=== PATIENT | female | born 1940 | race Caucasian/White ===

== ENCOUNTER 2018-01-18 08:41 | Emergency (ER) | payer MEDICARE, BC ==
[~2018-01-18] VITALS: Ht 175.3 cm; Wt 75.5 kg
[~2018-01-18 08:41] MED LIST: ADVIL200 MG; ALEVE 220MG220 MG PO; ASPIRIN 32325 MG/TAB PO; CALCIUM 6001 TA1 PO; CALCIUM PO; CELEBREX 200MG200 MG PO; CENTRUM SILVER1 TA1 PO; ELITE MAGNESIUM1 TAB PO; FERROUS SU325 MG/TAB PO; FISH OIL; FISH OIL CONC1000 MG PO; FOLIC ACID 40400 MCG PO; FOSAMAX PO; FOSAMAX70 MG PO; LEVOTHYROXINE PO; LUTEIN PO; LUTEIN20 M1 PO; LYRICA; MAGNESIUM250 M1 PO; NORCO 325 MG-51 TAB PO; NORCO 325 MG-7.1 TAB PO; OMEGA 31000 MG PO; OMEGA-3 FISH1200 MG PO; OSCAL 500MG/VI500 MG PO; SYNTHROID0.125 MG/T PO; TRAMADOL; ULTRAM; ULTRAM 50MG TAB50 MG PO; ULTRAM50 MG PO; VIT PO; VITAMIN C PUR1000 MG PO; VITAMIN C500 MG PO; VITAMIN D31000 I1 PO; lutein
[2018-01-18 08:45] VITALS: BP 145/65; TEMP 97
[2018-01-18 09:41] VITALS: PULSE 60
== END 2018-01-18 09:42 | disposition home or self-care (01) ==
LOC: COL.ER 08:41
DX: J11.1 Influenza due to unidentified influenza virus with other respiratory manifestations (principal); E03.9 Hypothyroidism, unspecified; Z90.49 Acquired absence of other specified parts of digestive tract; Z90.89 Acquired absence of other organs; Z87.891 Personal history of nicotine dependence; Z98.890 Other specified postprocedural states

== ENCOUNTER → 2018-04-15 | Outpatient (CLI) | payer MEDICARE, BC | LOC: MC.RAD 13:27 | DX: Z12.31 Encounter for screening mammogram for malignant neoplasm of breast (principal) ==

== ENCOUNTER → 2019-07-06 | Outpatient (CLI) | payer MEDICARE, BC | LOC: COL.RAD 13:02 | DX: M79.621 Pain in right upper arm (principal); R22.31 Localized swelling, mass and lump, right upper limb ==

== ENCOUNTER 2020-06-17 14:53 | Emergency (ER) | payer MEDICARE, BC ==
[~2020-06-17] VITALS: Ht 170.2 cm; Wt 73.6 kg
[2020-06-17 15:08] VITALS: BP 166/75; PULSE 72; TEMP 98
[2020-06-17 15:25] LABS: COLLECTION METHOD CLEAN CATCH
[2020-06-17 15:36] LABS: PH 6 (5-8); SQUAMOUS EPITHELIAL 0-2 /hpf; URINE APPEARANCE Clear; URINE BACTERIA Rare /hpf; URINE BILIRUBIN Negative (NEGATIVE); URINE BLOOD 1+ (NEGATIVE); URINE COLOR Yellow; URINE GLUCOSE Negative (NEGATIVE); URINE KETONE Negative (NEGATIVE); URINE LEUKOCYTE ESTERASE 1+ (NEGATIVE); URINE NITRATE Negative (NEGATIVE); URINE PROTEIN(semi-quant) Negative (NEGATIVE); URINE UROBILINOGEN Negative (NEGATIVE)
== END 2020-06-17 16:29 | disposition left against medical advice (07) ==
LOC: COL.ER 14:53
PROVIDERS: Family Medicine
DX: R42 Dizziness and giddiness (principal)

== ENCOUNTER → 2022-05-28 | Outpatient (CLI) | payer MEDICARE, BC ==
[2022-05-28 17:21] LABS: HEMATOCRIT 42.6 % (37.0-47.0); HEMOGLOBIN 14.1 g/dl (12.5-16.0); MEAN CELL VOLUME 90 fl (80.0-100.0); MEAN CORPUSCULAR HEMOGLOBIN 30 pg (27-31); MEAN CORPUSCULAR HGB CONC 33 g/dl (33.0-37.0); MEAN PLATELET VOLUME 11.3 fl (7.4-10.4); PLATELET COUNT 144 K/mm3 (130-400); RED BLOOD COUNT 4.71 M/mm3 (4.10-5.30); REDCELL DISTRIBUTION WIDTH-CV 13.3 % (11.5-14.5)
[2022-05-28 17:47] LABS: ERYTHROCYTE SEDIMENTATION RATE 7 mm/hr (0-30)
== END ==
LOC: COL.LAB 16:54
PROVIDERS: Nurse Practitioner
DX: M25.562 Pain in left knee (principal)

== ENCOUNTER 2022-05-30 14:46 | Inpatient (IN) | payer MEDICARE, BC ==
[~2022-05-30] VITALS: Ht 170.2 cm; Wt 75.0 kg
[2022-05-30 15:20] LABS: BASO % 0.2 % (0.0-2.0); EOS % 0.1 % (0.0-4.0); GRAN # 7.6 K/mm3 (1.4-6.5); GRAN % 82.6 % (42.2-75.2); HEMATOCRIT 40.4 % (37.0-47.0); HEMOGLOBIN 13.4 g/dl (12.5-16.0); LYMPH # 0.6 K/mm3 (1.2-3.4); LYMPH % 6.8 % (20.0-51.0); MEAN CELL VOLUME 91 fl (80.0-100.0); MEAN CORPUSCULAR HEMOGLOBIN 30 pg (27-31); MEAN CORPUSCULAR HGB CONC 33 g/dl (33.0-37.0); MEAN PLATELET VOLUME 10.9 fl (7.4-10.4); MONO # 0.9 K/mm3 (0.1-0.6); PLATELET COUNT 164 K/mm3 (130-400); RED BLOOD COUNT 4.45 M/mm3 (4.10-5.30); REDCELL DISTRIBUTION WIDTH-CV 13.6 % (11.5-14.5)
[2022-05-30 15:42] LABS: BILIRUBIN,TOTAL 1.7 mg/dL (0.2-1.2); CALCIUM 9.1 mg/dL (8.4-10.2); CREATININE, serum 0.82 mg/dL (0.57-1.11); POTASSIUM 3.8 mmol/L (3.5-4.5); TOTAL PROTEIN 7.3 gm/dL (6.2-8.1)
[2022-05-30 15:51] LABS: COLLECTION METHOD CLEAN CATCH
[2022-05-30 15:57] LABS: PH 6 (5-8); SQUAMOUS EPITHELIAL 0-2 /hpf (0-10); URINE APPEARANCE Clear (CLEAR/HAZY); URINE BACTERIA None Seen /hpf (NONE SEEN); URINE BLOOD 1+ (NEGATIVE); URINE COLOR Yellow (YELLOW); URINE GLUCOSE Negative (NEGATIVE); URINE KETONE Negative (NEGATIVE); URINE NITRATE Negative (NEGATIVE); URINE PROTEIN(semi-quant) 2+ (NEGATIVE); URINE UROBILINOGEN Negative (NEGATIVE)
[2022-05-30 17:17] VITALS: BP 149/64; PULSE 101; TEMP 100.5
--- NOTE | 2022-05-30 17:23 | NUR ---
PT ADMITTED TO UNIT. ADMISSION INTAKE AND ASSESSMENT COMPLETED. MED REC UPDATE. PT TREMORING AND STATES SHE FEELS COLD. RUNNING A TEMP AT THIS TIME. WILL CONTINUE TO MONITOR.
[2022-05-30 19:50] LABS: SYNOVIAL FLUID APPEARANCE TURBID; SYNOVIAL FLUID COLOR AMBER
[2022-05-30 19:58] LABS: SYNOVIAL FLUID RBC 31000 /mm3 (0-0)
[2022-05-30 20:02] VITALS: BP 126/59; PULSE 65; TEMP 99.1
[2022-05-30 20:12] LABS: SYNOVIAL FLUID WBC 84380 /mm3 (200-600)
--- NOTE | 2022-05-30 20:57 | NUR ---
Vancomycin Initial Dosing Pharmacy Note Ordering provider: Kiran Amado MD Indication/duration: Joint infection (knee) x 7 days Relevant comorbidities: N/A LABS: WBC= 9.2, SCr = 0.82 Recommendation: Will draw troughs and follow levels. Loading dose: 1.5 grams Maintenance dose: 750 mg every 12 hours Trough goal: 15-20 ug/mL
--- NOTE | 2022-05-30 22:57 | NUR ---
Dr. Jacobs in to aspirate knee around 1930. Results back and called to PAUL Briscoe, and started on ABX. Given PRN Ultram for discomfort to left knee. Aware that plan is to do I&D tomorrow. Will be NPO after midnight. Voices no questions, needs, or concerns at this time. In bed with call light within reach.
[2022-05-31] VITALS (13 sets, daily range): BP systolic 98–156; BP diastolic 43–103; PULSE 58–131; TEMP 97.9–98.8
--- NOTE | 2022-05-31 05:57 | NUR ---
Patient denies pain and discomfort. Recieved IV ABX per orders. Positive blood cultures called to PAUL Briscoe. No new orders. Voices no questions, needs, or concerns at this time. Has been NPO since midnight.
[2022-05-31 06:43] LABS: MEAN CELL VOLUME 93 fl (80.0-100.0); MEAN CORPUSCULAR HGB CONC 32 g/dl (33.0-37.0); MEAN PLATELET VOLUME 11.2 fl (7.4-10.4); PLATELET COUNT 134 K/mm3 (130-400); RED BLOOD COUNT 3.82 M/mm3 (4.10-5.30); REDCELL DISTRIBUTION WIDTH-CV 13.8 % (11.5-14.5)
[2022-05-31 07:01] LABS: ALBUMIN 2.3 gm/dL (3.4-4.8); C-REACTIVE PROTEIN 24.28 mg/dL (0.00-0.50); CREATININE, serum 0.87 mg/dL (0.57-1.11); MAGNESIUM 1.9 mg/dL (1.6-2.6); PHOSPHOROUS 2.5 mg/dL (2.3-4.7); POTASSIUM 3.7 mmol/L (3.5-4.5)
[2022-05-31 07:10] LABS: HEMATOCRIT 35.5 % (37.0-47.0); MEAN CORPUSCULAR HEMOGLOBIN 30 pg (27-31)
[2022-05-31 07:11] LABS: HEMOGLOBIN 11.4 g/dl (12.5-16.0)
[2022-05-31 08:12] LABS: BAND 9 % (0-10); HYPOCHROMIA 1+; LYMPHOCYTE 6 % (20.0-51.0); NEUTROPHILS 84 % (42.0-75.2); PLATELET ESTIMATE NORMAL (NORMAL)
[2022-05-31 08:13] LABS: OVALOCYTES 1+
--- NOTE | 2022-05-31 10:48 | NUR ---
PT RESTING IN BED. MORNING MEDICATIONS GIVEN. SHIFT ASSESSMENT COMPLETED. PT IN CONSIDERABLE PAIN THIS AM. UNABLE TO BEAR WEIGHT ON LLE DURING AMBULATION. UPDATED PT ON POC. PT COMPLAINS OF THIRST, EDUCATED ON NPO STATUS. PLAN FOR PROCEDURE THIS AFTERNOON. WILL CONTINUE TO MONITOR.
[2022-05-31] MEDS ORDERED: NORCO 325 MG-51 TAB PO (11:23)
--- NOTE | 2022-05-31 12:49 | NUR ---
THIS RN WALKED INTO PT ROOM TO FIND HER AMBULATING TO BATHROOM ALONE AND PULLED OUT IV. NEW IV STARTED TO R FOREARM. THIS RN FOUND WATER CUP IN PT BED AND ASKED IF SHE HAD TAKEN A DRINK, SHE STATED SHE HAD ABOUT 5 MINUTES AGO. THIS RN EDUCATED PT ON HOW THIS COULD PREVENT HER FROM GOING DOWN TO SCHEDULED PROCEDURE. PT STATES SHE THINKS THE DOCTOR IS TRYING TO KILL HER IF SHE GOES DOWN FOR THE PROCEDURE AND THAT SHE JUST WANTS TO GO HOME. THIS RN NOTIFIED PACU TEAM OF THIS INFORMATION AND SHE IS CHECKING WITH SURGERY TEAM BEFORE PROCEEDING.
--- NOTE | 2022-05-31 13:06 | NUR ---
PT TAKEN OFF UNIT FOR PROCEDURE AT THIS TIME.
--- NOTE | 2022-05-31 13:19 | NUR ---
Hydrometallurgical Engineer met with patient for intake assessment/discharge planning: Patient is alert and oriented, states feeling "terrible. I'm so dry." She does have a cup of ice. She is ambivalent about responding to case management questions, but responds she lives at home with her spouse Jeanne ([phone]). She identifies use of a walker, "Only when I'm sick," and denies any other use of DME, stating she has no need for support/assistance with ADLs/IADLs. She states her spouse assists her, as needed. "I'm fine." She informs her primary care physician is Dr. Darby Owens, and she obtains her medications at [facility], denying any concerns about obtaining them. She states "I don't care," when asked about her plan for discharge and/or her interest in HH, in-home rehab supports or SNF placement. She states "Yes. No." in response to inquiry about Advanced Directive. There is none placed in patient chart. She states, "I don't care" when asked if she is interested in completing one this date. She appears to fall asleep several times throughout the assessment, but rouses with gentle prompt. Patient denies any needs at this time. Social Work to continue to follow. *Discharge plan: to home pending PT/OT eval and medical recommendations*
--- NOTE | 2022-05-31 21:44 | NUR ---
Patient assessed around 2100. Alert and oriented, and able to make needs known. Reports pain with movement, denies at rest. Denies wanting pain medication. Had I&D of left knee today. TRUNG wrap from left foot to left thigh is CDI. No swelling noted to left foot, capillary refill less than 3 seconds, and denies numbness and tingling to left foot. Voices no questions, needs, or concerns at this time. In bed with call light within reach. Bed alarm on.
[2022-06-01] VITALS (16 sets, daily range): BP systolic 95–161; BP diastolic 45–79; PULSE 51–121; TEMP 97.4–98.7
--- NOTE | 2022-06-01 05:53 | NUR ---
Around 0430, checked on patient. IV to right forearm was out, blood on blankets, gown, floor. Held pressure to right forearm IV site. No skin tear noted to area. Gauze/coban used to stop bleeding. Patient cleaned with bath wipes, changed, and bedding changed. Jose to LLE changed due to old one having blood on it. New IV started to left forearm, morning labs obtained at time of IV start and given to lab. Patient continues to be able to transfers from bed to bedside commode with two assist. No pressure on left leg. Continues to wince with movement, but denies pain at rest, and declined pain medication whe asked. IV Zosyn D/C'd during the night. Continues on IV Vancomycin per orders. Patient voices no questions, needs, or concerns at this time. In bed with call light within reach. Bed alarm on.
[2022-06-01 07:31] LABS: HEMOGLOBIN 10.5 g/dl (12.5-16.0); MEAN CELL VOLUME 93 fl (80.0-100.0); MEAN CORPUSCULAR HEMOGLOBIN 30 pg (27-31); MEAN CORPUSCULAR HGB CONC 32 g/dl (33.0-37.0); MEAN PLATELET VOLUME 11.4 fl (7.4-10.4); PLATELET COUNT 140 K/mm3 (130-400); RED BLOOD COUNT 3.55 M/mm3 (4.10-5.30); REDCELL DISTRIBUTION WIDTH-CV 14.2 % (11.5-14.5)
[2022-06-01 07:33] LABS: HEMATOCRIT 33.1 % (37.0-47.0)
[2022-06-01 07:35] LABS: C-REACTIVE PROTEIN 24.8 mg/dL (0.00-0.50); CREATININE, serum 0.83 mg/dL (0.57-1.11); PHOSPHOROUS 2.7 mg/dL (2.3-4.7); POTASSIUM 4.3 mmol/L (3.5-4.5)
--- NOTE | 2022-06-01 08:00 | NUR ---
Patient is resting in bed, alert and oriented x 4, Telemetry in place, NSR. Left lower leg wrapped with lacey. States pain but denies pain medication at this time. Assessment completed, no other needs at this time. Call light within reach.
[2022-06-01 09:31] LABS: BAND 27 % (0-10); LYMPHOCYTE 4 % (20.0-51.0); NEUTROPHILS 68 % (42.0-75.2); OVALOCYTES 1+
--- NOTE | 2022-06-01 10:10 | NUR ---
Initial visit; Patient thanked Manager Trade for looking in on her and offering God's blessings and Manager Trade will keep Zulema in her prayers.
--- NOTE | 2022-06-01 14:32 | NUR ---
Critical care reporting HR 150'S -180'S. Patient went by herself to the restroom using the walker. Right now going back to the chair. No chest pain or dizziness. Continue monitoring.
--- NOTE | 2022-06-01 14:51 | NUR ---
Reported to Dr. Kiran Amado about patient's tachycardia. Metoprolol and EKG was ordered.
--- NOTE | 2022-06-01 15:58 | NUR ---
EKG showed AFIB with RVR, reported to Dr. Kiran Amado. Order or cardizem drip and cardiology consult placed.
[2022-06-01 17:05] LABS: PARTIAL THROMBOPLASTIN TIME 28.6 SECONDS (26.0-37.0)
--- NOTE | 2022-06-01 19:11 | NUR ---
Patient continues with heparin and cardizem drip. She asked for tramadol for pain. Right now eating her dinner. Continues with afib in 120's-140s. Report given to night RN.
--- NOTE | 2022-06-01 23:09 | NUR ---
Patient assessed around 1999. Alert and oriented. Denies pain and discomfort. Peripheral INT to left forearm with Heparin drip running per orders. Single lumen PICC to RUE with Cardizem drip running per orders. Dr. Osborne in to see patient, and new orders obtained. Give PO Amiodarone and check BNP in the morning. Daily EKG. Remains in A-fib at this time, HR 100-120s. Continues on IV ABX per orders. Dressing to left knee CDI. Voices no questions, needs, or concerns at this time. In bed with call light within reach. Bed alarm on.
[2022-06-02] VITALS (26 sets, daily range): BP systolic 90–136; BP diastolic 41–82; PULSE 52–114; TEMP 98–98.7
--- NOTE | 2022-06-02 06:06 | NUR ---
Patient continues on Cardizem drip and Heparin drip per orders. Awaiting HepXa results. Has had 1 goal level so far. In bed with call light within reach. Telemetry continues show A-fib RVR, HR 80-110s. Continues to deny pain and discomfort.
[2022-06-02 07:11] LABS: BASO % 0.2 % (0.0-2.0); GRAN # 9.7 K/mm3 (1.4-6.5); GRAN % 84.5 % (42.2-75.2); LYMPH # 0.9 K/mm3 (1.2-3.4); LYMPH % 8.2 % (20.0-51.0); MEAN CELL VOLUME 92 fl (80.0-100.0); MEAN CORPUSCULAR HGB CONC 33 g/dl (33.0-37.0); MEAN PLATELET VOLUME 11.8 fl (7.4-10.4); MONO # 0.7 K/mm3 (0.1-0.6); PLATELET COUNT 161 K/mm3 (130-400); RED BLOOD COUNT 3.12 M/mm3 (4.10-5.30); REDCELL DISTRIBUTION WIDTH-CV 14.2 % (11.5-14.5)
[2022-06-02 07:16] LABS: HEMATOCRIT 28.7 % (37.0-47.0); HEMOGLOBIN 9.4 g/dl (12.5-16.0); MEAN CORPUSCULAR HEMOGLOBIN 30 pg (27-31)
--- NOTE | 2022-06-02 07:51 | NUR ---
Hep gtt at goal (0530 hrs 06/02/22), no changes.
[2022-06-02 07:57] LABS: C-REACTIVE PROTEIN 11.38 mg/dL (0.00-0.50); CREATININE, serum 0.69 mg/dL (0.57-1.11); MAGNESIUM 1.9 mg/dL (1.6-2.6); PHOSPHOROUS 2.4 mg/dL (2.3-4.7); POTASSIUM 3.9 mmol/L (3.5-4.5)
--- NOTE | 2022-06-02 08:00 | NUR ---
Patient is resting in bed with at the bedside, complains of pain PRN will be provided. Telemetry in place, afib, irregular WNL. Continues with heparin gtt and cardizem gtt per orders. Assessment completed. No other needs at this time. Call light within reach.
--- NOTE | 2022-06-02 13:42 | NUR ---
Follow-up visit; Patient appeared to be tired and somewhat discouraged. Zulema isn't a "hugger," but Roller Pneumatic did pat her on her shoulder and wish her well and offered God's blessings. Roller Pneumatic will continue to look in on Zulema.
--- NOTE | 2022-06-02 19:07 | NUR ---
Hep gtt discontinued per orders. Continues with cardizen gtt. AFIB HR 90-110. Patient is eating well and moving aroung in the room with the help of the walker. Report given to night nurse.
--- NOTE | 2022-06-02 23:15 | NUR ---
PATIENT ASSESSED AT BEGINNING OF SHIFT. DENIED PAIN EXCEPT WITH MOVEMENT OF KNEE. DECREASED CARDIAZEM DRIP TO 5MG D/T LOWER BLOOD PRESSURES. NO OTHER ISSUES AT THIS TIME.
--- NOTE | 2022-06-02 23:27 | NUR ---
Patient's BP had been running 90s/50s. Called PAUL Briscoe. Order received to decrease Cardizem drip to 5 ml/hr (down from 10 ml/hr). Decreased rate at 2230.
[2022-06-03] VITALS (15 sets, daily range): BP systolic 80–121; BP diastolic 32–70; PULSE 82–117; TEMP 98.1–98.5
--- NOTE | 2022-06-03 08:11 | NUR ---
Received call from PAUL Dunne, asking to put PT NPO for possible cardioversion. Pt aware now.
--- NOTE | 2022-06-03 09:00 | NUR ---
Patient is resting in bed, alert and oriented, continues with soft blood pressure. HR 90-110. Telemetry in place, afib, irregular. Continues with cardizem gtt at 5 ml/hr. Assessment completed. No other needs at this time. Call ligth withinr reach.
[2022-06-03 09:11] LABS: MEAN CELL VOLUME 90 fl (80.0-100.0); MEAN CORPUSCULAR HGB CONC 32 g/dl (33.0-37.0); PLATELET COUNT 209 K/mm3 (130-400); REDCELL DISTRIBUTION WIDTH-CV 14.4 % (11.5-14.5)
[2022-06-03 09:13] LABS: HEMATOCRIT 24.4 % (37.0-47.0); HEMOGLOBIN 7.9 g/dl (12.5-16.0); MEAN CORPUSCULAR HEMOGLOBIN 29 pg (27-31)
[2022-06-03 09:25] LABS: POTASSIUM 3.8 mmol/L (3.5-4.5)
[2022-06-03 10:02] LABS: CREATININE, serum 0.66 mg/dL (0.57-1.11); MAGNESIUM 1.7 mg/dL (1.6-2.6); PHOSPHOROUS 3.1 mg/dL (2.3-4.7)
[2022-06-03 11:35] LABS: LYMPHOCYTE 23 % (20.0-51.0); NEUTROPHILS 68 % (42.0-75.2)
[2022-06-03 11:36] LABS: HYPOCHROMIA 1+; PLATELET ESTIMATE NORMAL (NORMAL)
[2022-06-03 14:07] LABS: MEAN CELL VOLUME 91 fl (80.0-100.0); MEAN CORPUSCULAR HGB CONC 33 g/dl (33.0-37.0); MEAN PLATELET VOLUME 10.5 fl (7.4-10.4); PLATELET COUNT 224 K/mm3 (130-400); RED BLOOD COUNT 2.81 M/mm3 (4.10-5.30); REDCELL DISTRIBUTION WIDTH-CV 14.3 % (11.5-14.5)
[2022-06-03 14:16] LABS: HEMATOCRIT 25.5 % (37.0-47.0); HEMOGLOBIN 8.4 g/dl (12.5-16.0); MEAN CORPUSCULAR HEMOGLOBIN 30 pg (27-31)
[2022-06-03 14:51] LABS: BAND 12 % (0-10); LYMPHOCYTE 13 % (20.0-51.0); METAMYELOCYTE 2 % (0-0); NEUTROPHILS 65 % (42.0-75.2); PLATELET ESTIMATE NORMAL (NORMAL)
--- NOTE | 2022-06-03 19:05 | NUR ---
Patient is been resting in her room. Her blood pressure is improving. Continues in AFIB 90-110 HR. Aware of BO, NPO midnight. Report given to night RN.
[2022-06-03 22:16] LABS: HEMATOCRIT 23.4 % (37.0-47.0); HEMOGLOBIN 7.8 g/dl (12.5-16.0)
[2022-06-04 00:45] VITALS: BP 105/61; PULSE 99; TEMP 98
[2022-06-04 04:35] VITALS: BP 124/56; PULSE 76; TEMP 97.5
[2022-06-04 07:45] LABS: MEAN CELL VOLUME 93 fl (80.0-100.0); MEAN CORPUSCULAR HGB CONC 32 g/dl (33.0-37.0); MEAN PLATELET VOLUME 10.7 fl (7.4-10.4); PLATELET COUNT 219 K/mm3 (130-400); REDCELL DISTRIBUTION WIDTH-CV 14.2 % (11.5-14.5)
[2022-06-04 07:48] LABS: HEMOGLOBIN 7.9 g/dl (12.5-16.0); MEAN CORPUSCULAR HEMOGLOBIN 29 pg (27-31)
--- NOTE | 2022-06-04 08:00 | NUR ---
Assessment complete. A&Ox4. Denies pain/nausea/shortness of breath. VS remain stable. Patient very upset and agitated when notified that heart cath would be at 1415. States she was told it would be at 0800 and upset that it has been pushed back. Very demanding and threatening to leave. Verified with clinical lab specialist and 1430 is when it is scheduled. Verbalizes understanding. Call light in reach. Will monitor.
[2022-06-04 08:01] VITALS: BP 118/54; PULSE 102; TEMP 98.1
[2022-06-04 08:11] LABS: ALBUMIN 2.1 gm/dL (3.4-4.8); C-REACTIVE PROTEIN 5.4 mg/dL (0.00-0.50); CREATININE, serum 0.7 mg/dL (0.57-1.11); MAGNESIUM 1.6 mg/dL (1.6-2.6); PHOSPHOROUS 3.4 mg/dL (2.3-4.7)
--- NOTE | 2022-06-04 09:57 | NUR ---
Follow-up visit; Patient thanked Transformation Consultant for bringing her a card from Thierno from [facility] and wishing her well. Zulema is impatient and wants to go home, however her health is telling her 'no,' at this time. Transformation Consultant will continue to look in on her.
[2022-06-04 10:15] LABS: BAND 17 % (0-10); NEUTROPHILS 59 % (42.0-75.2); PLATELET ESTIMATE NORMAL (NORMAL)
[2022-06-04 10:16] LABS: HYPOCHROMIA 1+; LYMPHOCYTE 15 % (20.0-51.0); OVALOCYTES 1+; POIKILOCYTOSIS 1+
[2022-06-04 11:24] VITALS: BP 112/48; PULSE 117; TEMP 98.6
--- NOTE | 2022-06-04 14:53 | NUR ---
Patient states she wants to leave AMA because her procedure has been pushed back and she wants to eat now. Spoke with wastewater analyst lab analyst and notified Nurse. Spoke with Dr Amado and states he will be up to speak to patient in 30 minutes. Will let patient know and try to convince to stay.
--- NOTE | 2022-06-04 15:30 | NUR ---
Patient continues to be upset. laborer road called stating she has eaten and drank so procedure has been cancelled. Spoke with Dr Amado and states procedure will be done tomorrow.
--- NOTE | 2022-06-04 16:14 | NUR ---
Patient called again stating she needed help getting dressed to leave. Dr Amado states he will come to see patient again. Charge nurse RUSTY Briscoe to see patient as well.
--- NOTE | 2022-06-04 16:37 | NUR ---
ROMMEL Dash called to see if patient could be scheduled for cards procedure first thing in AM. States will check and call back later.
--- NOTE | 2022-06-04 16:50 | NUR ---
Cards in to see patient and discussed AM heart cath. States she will stay overnight now.
[2022-06-04 20:07] VITALS: BP 141/73; PULSE 68; TEMP 99.2
[2022-06-05] VITALS (14 sets, daily range): BP systolic 103–125; BP diastolic 40–80; PULSE 70–117; TEMP 97.8–98.8
--- NOTE | 2022-06-05 05:45 | NUR ---
PT SEEMED VERY SAD, WOULD EVEN CRY AT TIMES. WHEN ASK WHAT WAS WRONG, PT WAS JUST ANSWER, NOTHING OR I'M OK. PT COMPLAINED OF PAIN. PT GIVEN ROXICODONE AND ULTRAM. PT FELT THE PAIN MEDS DID AN OK JOB. PT NPO AFTER MIDNIGHT. CALL LIGHT WITHIN REACH.
[2022-06-05 06:55] LABS: MEAN CELL VOLUME 95 fl (80.0-100.0); MEAN CORPUSCULAR HGB CONC 32 g/dl (33.0-37.0); MEAN PLATELET VOLUME 10.2 fl (7.4-10.4); PLATELET COUNT 293 K/mm3 (130-400); RED BLOOD COUNT 2.77 M/mm3 (4.10-5.30); REDCELL DISTRIBUTION WIDTH-CV 14.2 % (11.5-14.5)
[2022-06-05 07:05] LABS: HEMATOCRIT 26.2 % (37.0-47.0); HEMOGLOBIN 8.4 g/dl (12.5-16.0); MEAN CORPUSCULAR HEMOGLOBIN 30 pg (27-31)
[2022-06-06 00:26] VITALS: BP 114/52; PULSE 116; TEMP 98.7
[2022-06-06 04:59] VITALS: BP 113/60; PULSE 98; TEMP 98.7
--- NOTE | 2022-06-06 05:50 | NUR ---
PT SEEMED MUCH MORE UPBEAT THEN LAST SHIFT. ALTHROUGH THERE WERE MOMENTS OF MELANCHOLY, FOR THE MOST PART, PT SEEMED CONTENT. PT COMPLAINED A COUPLE OF TIMES OF LEG PAIN. PT GIVEN ROXICODONE. PT FELT ROXICODONE WORKED WELL FOR HER. CALL LIGHT WITHIN REACH.
[2022-06-06 07:44] LABS: CALCIUM 8.1 mg/dL (8.4-10.2); CREATININE, serum 0.77 mg/dL (0.57-1.11); POTASSIUM 3.9 mmol/L (3.5-4.5)
[2022-06-06 08:00] VITALS: BP 110/56; PULSE 96; TEMP 98.3
[2022-06-06 12:00] VITALS: BP 122/66; PULSE 51
[2022-06-06 16:00] VITALS: BP 116/58; PULSE 98
[2022-06-06 20:49] VITALS: BP 117/52; PULSE 101; TEMP 99
--- NOTE | 2022-06-06 21:00 | NUR ---
ASSESSMENT COMPLETE FOR THIS SHIFT. PT IN BED COMPLAINING OF LEG PAIN. PT GIVEN ROXICODONE FOR PAIN. PT FELT PAIN MEDICATION WAS EFFECTIVE. PT DENIED CHEST PAIN, SOB, N,V,D OR DIZZINESS. PT INFORMED THAT HER CARE WOULD BE TRANSFERED TO [facility]. PT WAS ACCEPTING. PT EXPRESSED NO OTHER NEEDS AT THIS TIME. CALL LIGHT WITHIN REACH.
--- NOTE | 2022-06-06 22:00 | NUR ---
PT'S BELONGING GATHERED WITH THE HELP OF FAMILY AND AID. PT STABLE AND READY FOR TRANSPORT. REPORT GIVEN TO TRANSPORT TEAM. TRANSPORT TEAM PLACED PT ON TRANSPORT BED. PT ESCORTED OUT OF THE FACILITY VIA TRANSPORT BED WITH TRANSPORT TEAM AND FAMILY AROUND 2130HRS. REPORT GIVEN TO RECEIVING RN AT [facility].
== END 2022-06-06 21:30 | disposition short-term general hospital (02) | DRG 485 ==
LOC: COL.ER 14:46 → MEDICAL 16:15
PROVIDERS: Family Medicine; Internal Medicine Gastroenterology; Orthopaedic Surgery Sports Medicine; Physician Assistant; ADMIT Internal Medicine
PROC: 0SUW09Z Supplement Left Knee Joint, Tibial Surface with Liner, Open Approach (ICD-10-PCS; 2022-05-31)
PROC: 0SPD09Z Removal of Liner from Left Knee Joint, Open Approach (ICD-10-PCS; principal; 2022-05-31 12:00)
PROC: 02HV33Z Insertion of Infusion Device into Superior Vena Cava, Percutaneous Approach (ICD-10-PCS; 2022-06-01)
DX: T84.54XA Infection and inflammatory reaction due to internal left knee prosthesis, initial encounter (principal); A41.9 Sepsis, unspecified organism; I33.0 Acute and subacute infective endocarditis; M00.9 Pyogenic arthritis, unspecified; K92.1 Melena; Y83.8 Other surgical procedures as the cause of abnormal reaction of the patient, or of later complication, without mention of misadventure at the time of the procedure; I48.91 Unspecified atrial fibrillation; E03.9 Hypothyroidism, unspecified; G89.29 Other chronic pain; M54.50 Low back pain, unspecified; Z96.653 Presence of artificial knee joint, bilateral; B95.61 Methicillin susceptible Staphylococcus aureus infection as the cause of diseases classified elsewhere; D64.9 Anemia, unspecified; I27.20 Pulmonary hypertension, unspecified; M81.0 Age-related osteoporosis without current pathological fracture; I08.2 Rheumatic disorders of both aortic and tricuspid valves; I95.9 Hypotension, unspecified; Y92.89 Other specified places as the place of occurrence of the external cause; Z90.89 Acquired absence of other organs; Z87.19 Personal history of other diseases of the digestive system; Z79.890 Hormone replacement therapy; Z90.49 Acquired absence of other specified parts of digestive tract; Z88.8 Allergy status to other drugs, medicaments and biological substances; Z23 Encounter for immunization
CPT/HCPCS: OP; 99232-AI; 99233-AI; C1751; C1776; G0378; J0690; J0696; J1100; J1160; J1170; J1644; J1885; J2270; J2370; J2405; J2543; J2704; J3010; J3370; J7030; J7040; J7050

== ENCOUNTER 2022-07-09 05:03 | Emergency (ER) | payer MEDICARE, BC ==
[~2022-07-09] VITALS: Ht 170.2 cm; Wt 68.2 kg
[2022-07-09 05:17] VITALS: TEMP 98.5
[2022-07-09 05:39] LABS: MEAN CELL VOLUME 100 fl (80.0-100.0); MEAN CORPUSCULAR HGB CONC 30 g/dl (33.0-37.0); MEAN PLATELET VOLUME 10.2 fl (7.4-10.4); PLATELET COUNT 225 K/mm3 (130-400); RED BLOOD COUNT 3.15 M/mm3 (4.10-5.30); REDCELL DISTRIBUTION WIDTH-CV 16.9 % (11.5-14.5)
[2022-07-09 05:45] LABS: HEMATOCRIT 31.4 % (37.0-47.0); HEMOGLOBIN 9.5 g/dl (12.5-16.0); MEAN CORPUSCULAR HEMOGLOBIN 30 pg (27-31)
[2022-07-09 05:49] LABS: INR 4.7 (0.8-3.0)
[2022-07-09 05:51] LABS: PARTIAL THROMBOPLASTIN TIME 46.1 SECONDS (26.0-37.0)
[2022-07-09 05:57] LABS: PROTHROMBIN TIME 54.8 SECONDS (9.7-12.8)
[2022-07-09 05:59] LABS: ALBUMIN 2.6 gm/dL (3.4-4.8); ALKALINE PHOSPHATASE 118 U/L (40-150); ANION GAP 14 mmol/L (7-16); AST,SGOT 23 U/L (5-34); BILIRUBIN,TOTAL 0.9 mg/dL (0.2-1.2); BLOOD UREA NITROGEN 36 mg/dL (10-20); CALCIUM 8.2 mg/dL (8.4-10.2); CARBON DIOXIDE 26 mmol/L (23-31); CHLORIDE 96 mmol/L (98-107); CREATININE, serum 1.56 mg/dL (0.57-1.11); GLUCOSE 98 mg/dL (70-99); SODIUM 136 mmol/L (136-145)
[2022-07-09 06:00] LABS: ALANINE AMINOTRANSFERASE < 6 U/L (0-55)
[2022-07-09 06:01] LABS: POTASSIUM 2.9 mmol/L (3.5-4.5)
[2022-07-09 06:05] LABS: ANISOCYTOSIS 1+; BAND 34 % (0-10); LYMPHOCYTE 4 % (20.0-51.0); NEUTROPHILS 59 % (42.0-75.2); NUCLEATED RED BLOOD CELL 1 (0-6); PLATELET ESTIMATE NORMAL (NORMAL)
[2022-07-09 06:20] VITALS: BP 74/40; PULSE 113
== END 2022-07-09 06:30 | disposition short-term general hospital (02) ==
LOC: COL.ER 05:03
PROVIDERS: Emergency Medicine
DX: I48.91 Unspecified atrial fibrillation (principal); I21.3 ST elevation (STEMI) myocardial infarction of unspecified site; E87.6 Hypokalemia; I95.9 Hypotension, unspecified; R60.0 Localized edema; Z87.891 Personal history of nicotine dependence; Z95.1 Presence of aortocoronary bypass graft; Z79.01 Long term (current) use of anticoagulants; Z79.82 Long term (current) use of aspirin
CPT/HCPCS: J1644; J3101; J7030

== ENCOUNTER → 2022-09-16 | Outpatient (CLI) | payer MEDICARE, BC ==
[2022-09-16 17:47] LABS: MEAN CELL VOLUME 102 fl (80.0-100.0); MEAN CORPUSCULAR HGB CONC 30 g/dl (33.0-37.0); MEAN PLATELET VOLUME 10.1 fl (7.4-10.4); PLATELET COUNT 188 K/mm3 (130-400); RED BLOOD COUNT 3.05 M/mm3 (4.10-5.30); REDCELL DISTRIBUTION WIDTH-CV 18.1 % (11.5-14.5)
[2022-09-16 17:49] LABS: HEMOGLOBIN 9.3 g/dl (12.5-16.0); MEAN CORPUSCULAR HEMOGLOBIN 30 pg (27-31)
[2022-09-16 17:56] LABS: ALBUMIN 2.2 gm/dL (3.4-4.8); ALKALINE PHOSPHATASE 112 U/L (40-150); ANION GAP 8 mmol/L (7-16); AST,SGOT 24 U/L (5-34); BILIRUBIN,TOTAL 0.4 mg/dL (0.2-1.2); BLOOD UREA NITROGEN 17 mg/dL (10-20); C-REACTIVE PROTEIN 2.65 mg/dL (0.00-0.50); CALCIUM 7.8 mg/dL (8.4-10.2); CARBON DIOXIDE 25 mmol/L (23-31); CHLORIDE 109 mmol/L (98-107); CREATININE, serum 1.09 mg/dL (0.57-1.11); GLUCOSE 143 mg/dL (70-99); POTASSIUM 3.8 mmol/L (3.5-4.5); SODIUM 142 mmol/L (136-145); TOTAL PROTEIN 5.7 gm/dL (6.2-8.1)
[2022-09-16 17:58] LABS: ALANINE AMINOTRANSFERASE < 6 U/L (0-55)
== END ==
LOC: ZLAB.STJ 16:36
DX: R78.81 Bacteremia (principal)

== ENCOUNTER → 2023-08-05 | Outpatient (CLI) | payer MEDICARE, BC ==
[~2023-08-05] MED LIST changes: +PERCOCET 325 MG1 TA2 PO
== END ==
LOC: COL.PUL 10:48
DX: R06.09 Other forms of dyspnea (principal)

== ENCOUNTER → 2023-08-09 | Outpatient (CLI) | payer MEDICARE, BC ==
[~2023-08-09] MED LIST changes: +ASPIRIN 81M81 MG/TA2 PO; +CORDARONE200 MG/TAB PO; +DESYREL 50MG50 MG PO; +DURICEF 500MG500 MG PO; +PRAVACHOL 40MG40 MG PO; +TOPROL XL 25MG25 MG PO; +ZESTRIL 10MG10 MG PO
[2023-08-09 14:15] VITALS: BP 158/57; PULSE 51; TEMP 97.8
== END ==
LOC: COL.ER 13:53
DX: Z48.02 Encounter for removal of sutures (principal)

== ENCOUNTER → 2023-12-24 | Outpatient (CLI) | payer MEDICARE, BC | LOC: COL.RAD 11:56 | DX: R22.42 Localized swelling, mass and lump, left lower limb (principal); M79.662 Pain in left lower leg ==

== ENCOUNTER 2024-09-22 14:35 | Outpatient (CLI) | payer MEDICARE, BC ==
[~2024-09-22] VITALS: Ht 170.2 cm; Wt 69.0 kg
[2024-09-22] MEDS ORDERED: Denosumab 60 MG/ML SYRINGE SQ ONE (15:00)
[2024-09-22 15:23] VITALS: BP 115/51; PULSE 53; TEMP 97.8
[2024-09-22] MEDS ORDERED: NORVASC2.5 MG PO (15:30)
== END 2024-09-22 15:30 | disposition home or self-care (01) ==
LOC: EUO 14:35
DX: M81.0 Age-related osteoporosis without current pathological fracture (principal)
CPT/HCPCS: J0897